=== PATIENT | female | born 1950 | race African-American/Black ===

== ENCOUNTER 2016-10-18 12:11 | Emergency (ER) | payer MEDICAID ==
[~2016-10-18] VITALS: Ht 167.6 cm; Wt 80.0 kg
[~2016-10-18 12:11] MED LIST: AMLO10TA4; BACL-141; CELL5; GABA-529; METO5TAB86; PROG1
[2016-10-18] MEDS ORDERED: KETOROLAC 60MG/2ML VIAL IM ONE (13:30)
[2016-10-18 16:24] VITALS: BP 155/75
== END 2016-10-18 17:00 | disposition home or self-care (01) ==
LOC: ER 13:35
DX: S09.90XA Unspecified injury of head, initial encounter (principal); R07.81 Pleurodynia; Z79.899 Other long term (current) drug therapy; I10 Essential (primary) hypertension; E11.9 Type 2 diabetes mellitus without complications; S20.211A Contusion of right front wall of thorax, initial encounter; Y09 Assault by unspecified means; Y93.89 Activity, other specified; Y99.9 Unspecified external cause status; Y92.89 Other specified places as the place of occurrence of the external cause
CPT/HCPCS: 70450; 71101; 96372; 99284; J1885

== ENCOUNTER 2019-07-08 21:10 | Inpatient (IN) | payer MEDICAID, MEDICARE ==
[~2019-07-08] VITALS: Ht 167.6 cm; Wt 95.3 kg
[~2019-07-08 21:10] MED LIST changes: -CELL5; +CELL5 PO
[2019-07-08] MEDS ORDERED: SODIUM CHLORIDE 0.9% 1,000 ML IV ONE (22:22)
[2019-07-08 22:57] LABS: BASOPHILS % 1.2 % (0.0-2.0); EOSINOPHILS % 1.5 % (0.0-5.0); HEMATOCRIT. 40.2 % (36.0-48.0); HEMOGLOBIN. 13.3 g/dL (12.0-16.0); LYMPHOCYTES % 32.4 % (20.0-50.0); MEAN CORPUSCULAR HEMOGLOBIN 25.2 pg (28.0-32.0); MEAN PLATELET VOLUME 9.5 fl (7.4-10.4); MONOCYTES % 8.8 % (2.0-8.0); NEUTROPHILS % 56.1 % (40.0-76.0); PLATELET 278 x1000/uL (130-400); RED BLOOD CELL COUNT 5.29 mill/uL (4.2-5.4); RED CELL DISTRIBUTION WIDTH 15.1 % (11.6-14.6)
[2019-07-08 23:02] LABS: INR 0.9; PROTHROMBIN TIME 9.9 sec (9.6-11.0)
[2019-07-08 23:04] LABS: CHLORIDE 108 mEq/L (98-107)
[2019-07-09 01:01] LABS: CLARITY URINE CLEAR (CLEAR); COLOR URINE YELLOW (YELLOW); KETONES URINE TRACE (NEGATIVE); LEUKOCYTE ESTERASE URINE 1+ (NEGATIVE); NITRITE URINE NEGATIVE (NEGATIVE); OCCULT BLOOD URINE 1+ (NEGATIVE); PH URINE 6.5 (4.5-8.0); PROTEIN URINE NEGATIVE (NEGATIVE); UROBILINOGEN URINE 0.2 E.U./dL (0.2-1.0)
[2019-07-09] MEDS ORDERED: CEFTRIAXONE 1 G PREMIX 50 ML IV ONE (01:45)
[2019-07-09] MEDS ORDERED: PANTOPRAZOLE SODIUM 40 MG/VIAL IV SCH (04:45)
[2019-07-09] MEDS ORDERED: ONDANSETRON HCL 4MG/2ML INJ IV PRN ×2 (04:45→13:00)
[2019-07-09] MEDS ORDERED: MORPHINE SULFATE 2 MG/ML CPJ (NOT FOR IM USE) IV PRN (04:45)
[2019-07-09] MEDS ORDERED: PANTOPRAZOLE 80 MG in SODIUM CHLORIDE 0.9% 100 ML IV SCH (05:00)
[2019-07-09 06:52] LABS: BASOPHILS % 0.4 % (0.0-2.0); EOSINOPHILS % 0.7 % (0.0-5.0); HEMATOCRIT. 34.5 % (36.0-48.0); HEMOGLOBIN. 11.2 g/dL (12.0-16.0); LYMPHOCYTES % 18.3 % (20.0-50.0); MEAN CORPUSCULAR HEMOGLOBIN 24.9 pg (28.0-32.0); MEAN CORPUSCULAR VOLUME 76.7 fL (81.0-99.0); MEAN PLATELET VOLUME 9.6 fl (7.4-10.4); MONOCYTES % 6.5 % (2.0-8.0); NEUTROPHILS % 74.1 % (40.0-76.0); PLATELET 229 x1000/uL (130-400); RED BLOOD CELL COUNT 4.49 mill/uL (4.2-5.4); RED CELL DISTRIBUTION WIDTH 14.9 % (11.6-14.6)
[2019-07-09] MEDS ORDERED: ACETAMINOPHEN 325MG TABLET PO PRN (13:00)
[2019-07-09] MEDS ORDERED: GABAPENTIN 100MG CAPSULE PO NR (13:15)
[2019-07-09] MEDS ORDERED: MYCOPHENOLATE MOFETIL 500MG TABLET PO NR (13:30)
[2019-07-09] MEDS ORDERED: TACROLIMUS 1MG CAPSULE PO NR ×2 (13:30→18:45)
[2019-07-09] MEDS ORDERED: MYCOPHENOLATE MOFETIL 500MG TABLET PO SCH (17:00)
[2019-07-09] MEDS ORDERED: CELL2 MT (18:18)
[2019-07-09 19:44] LABS: BASOPHILS % 0.4 % (0.0-2.0); EOSINOPHILS % 1.1 % (0.0-5.0); HEMATOCRIT. 33.4 % (36.0-48.0); HEMOGLOBIN. 10.9 g/dL (12.0-16.0); LYMPHOCYTES % 34.7 % (20.0-50.0); MEAN CORPUSCULAR HEMOGLOBIN 25.2 pg (28.0-32.0); MEAN CORPUSCULAR VOLUME 77.2 fL (81.0-99.0); MEAN PLATELET VOLUME 9.1 fl (7.4-10.4); MONOCYTES % 6.3 % (2.0-8.0); NEUTROPHILS % 57.5 % (40.0-76.0); PLATELET 250 x1000/uL (130-400); RED BLOOD CELL COUNT 4.32 mill/uL (4.2-5.4)
[2019-07-09 19:51] LABS: CHLORIDE 113 mEq/L (98-107)
[2019-07-09 19:56] LABS: TOTAL IRON BINDING CAPACITY 254 ug/dL (250-450)
[2019-07-09 20:10] LABS: FOLIC ACID (FOLATE) SERUM >20 ng/mL ng/mL (>5.38)
[2019-07-09 20:21] LABS: VITAMIN B12 SERUM 507 pg/mL (211-911)
[2019-07-09] MEDS ORDERED: MYCOPHENOLATE MOFETIL 250MG CAPSULE PO NR (20:45)
[2019-07-09 20:56] LABS: FERRITIN 47 ng/mL (10-291)
[2019-07-10 04:00] VITALS: BP 130/59
[2019-07-10 06:56] VITALS: BP 140/63
[2019-07-10] MEDS: PROGRAF 1 MG PO SCH (08:00)
[2019-07-10 08:11] VITALS: BP 140/54
[2019-07-10] MEDS ORDERED: CEFTRIAXONE 1 G PREMIX 50 ML IV SCH (09:00)
[2019-07-10] MEDS ORDERED: TACROLIMUS 1MG CAPSULE PO SCH (09:00)
[2019-07-10] MEDS: PANTOPRAZOLE SODIUM 40 MG/VIAL IV SCH (09:08)
[2019-07-10] MEDS: AMLODIPINE 10MG TABLET PO SCH (09:09)
[2019-07-10] MEDS: GABAPENTIN 100MG CAPSULE PO SCH ×3 (09:09→17:38)
[2019-07-10] MEDS: CEFTRIAXONE 1 G PREMIX 50 ML IV SCH (09:10)
[2019-07-10] MEDS: MYCOPHENOLATE 250 MG PO SCH ×2 (10:30→21:00)
[2019-07-10 11:48] VITALS: BP 120/55
[2019-07-10 12:27] LABS: BASOPHILS % 0.4 % (0.0-2.0); EOSINOPHILS % 1.4 % (0.0-5.0); HEMATOCRIT. 31.5 % (36.0-48.0); HEMOGLOBIN. 10.2 g/dL (12.0-16.0); LYMPHOCYTES % 38.3 % (20.0-50.0); MEAN CORPUSCULAR VOLUME 77.1 fL (81.0-99.0); MEAN PLATELET VOLUME 9.7 fl (7.4-10.4); MONOCYTES % 6.3 % (2.0-8.0); NEUTROPHILS % 53.6 % (40.0-76.0); PLATELET 237 x1000/uL (130-400); RED BLOOD CELL COUNT 4.09 mill/uL (4.2-5.4); RED CELL DISTRIBUTION WIDTH 15.1 % (11.6-14.6)
[2019-07-10 12:33] LABS: CHLORIDE 113 mEq/L (98-107)
[2019-07-10 16:56] VITALS: BP 142/63
[2019-07-10 20:00] VITALS: BP 144/71
[2019-07-10] MEDS ORDERED: PROGRAF 1 MG PO SCH (20:00)
[2019-07-11] VITALS: BP 120/52
[2019-07-11 00:24] LABS: HEMATOCRIT 32.1 % (36.0-48.0); HEMOGLOBIN 10.6 g/dL (12.0-16.0)
[2019-07-11 04:00] VITALS: BP 110/54
[2019-07-11 06:32] LABS: BASOPHILS % 0.6 % (0.0-2.0); EOSINOPHILS % 2.7 % (0.0-5.0); HEMATOCRIT. 32.4 % (36.0-48.0); HEMOGLOBIN. 10.5 g/dL (12.0-16.0); MEAN CORPUSCULAR HEMOGLOBIN 25.2 pg (28.0-32.0); MEAN CORPUSCULAR VOLUME 77.6 fL (81.0-99.0); MEAN PLATELET VOLUME 9.7 fl (7.4-10.4); MONOCYTES % 7.5 % (2.0-8.0); NEUTROPHILS % 47.2 % (40.0-76.0); PLATELET 251 x1000/uL (130-400); RED BLOOD CELL COUNT 4.17 mill/uL (4.2-5.4); RED CELL DISTRIBUTION WIDTH 15.4 % (11.6-14.6)
[2019-07-11] MEDS: PROGRAF 1 MG PO SCH (08:00)
[2019-07-11 08:36] VITALS: BP 125/57
[2019-07-11] MEDS: GABAPENTIN 100MG CAPSULE PO SCH ×3 (08:42→16:32)
[2019-07-11] MEDS: AMLODIPINE 10MG TABLET PO SCH (08:44)
[2019-07-11] MEDS: CEFTRIAXONE 1 G PREMIX 50 ML IV SCH (08:44)
[2019-07-11] MEDS: PANTOPRAZOLE SODIUM 40 MG/VIAL IV SCH (08:44)
[2019-07-11] MEDS: MYCOPHENOLATE 250 MG PO SCH (09:00)
[2019-07-11 11:46] VITALS: BP 124/60
[2019-07-11 15:26] VITALS: BP 175/86
[2019-07-11 16:04] VITALS: BP 124/60
== END 2019-07-11 17:20 | disposition home or self-care (01) | DRG 393 ==
LOC: ER 21:10 → 6WST 07-09 00:39 → EDBEDREQDT 07-09 00:42 → EDBEDREQTM 07-09 00:42 → EDBEDREQ 07-09 00:42 → ENRESERV 07-09 20:21
PROVIDERS: ADMIT Internal Medicine; ATTEND Internal Medicine
DX: K64.9 Unspecified hemorrhoids (principal); K57.31 Diverticulosis of large intestine without perforation or abscess with bleeding; D62 Acute posthemorrhagic anemia; N39.0 Urinary tract infection, site not specified; Z94.4 Liver transplant status; D50.9 Iron deficiency anemia, unspecified; E11.9 Type 2 diabetes mellitus without complications; I10 Essential (primary) hypertension; E88.09 Other disorders of plasma-protein metabolism, not elsewhere classified; Z79.899 Other long term (current) drug therapy
CPT/HCPCS: 36415; 71045; 74176; 78278; 80048; 80053; 81003; 82607; 82728; 82746; 82962; 83540; 83550; 85014; 85018; 85025; 86850; 86900; 93005; 99285; A9560; C9113; J0696; J2270; J2405; J7030; J7050; J7507; J7517